=== PATIENT | male | born 1980 | race African-American/Black ===

== ENCOUNTER 2016-07-19 11:44 | Emergency (ER) | payer MEDICAID ==
[~2016-07-19] VITALS: Ht 182.9 cm; Wt 115.7 kg
[~2016-07-19 11:44] MED LIST: GABA300C; HYDR-429
[2016-07-19 12:23] VITALS: BP 171/103
== END 2016-07-19 13:02 | disposition home or self-care (01) ==
LOC: ER 11:45
DX: S43.401A Unspecified sprain of right shoulder joint, initial encounter (principal); J06.9 Acute upper respiratory infection, unspecified; I10 Essential (primary) hypertension; F41.9 Anxiety disorder, unspecified; W01.0XXA Fall on same level from slipping, tripping and stumbling without subsequent striking against object, initial encounter; Y93.89 Activity, other specified; Y92.89 Other specified places as the place of occurrence of the external cause; Y99.8 Other external cause status
CPT/HCPCS: 99283; A4606; Z7610

== ENCOUNTER 2016-12-28 06:56 | Emergency (ER) | payer MEDICAID ==
[~2016-12-28] VITALS: Ht 182.9 cm; Wt 113.4 kg
[~2016-12-28 06:56] MED LIST changes: -HYDR-429; +HYDR-548
--- NOTE | 2016-12-28 07:00 | NUR ---
PT PRESENTED TO THE ER WITH A C/O LT TESTICULAR PAIN X 3 DAYS THAT RADIATES TO THE BACK. PT AMBULATED TO THE BATHROOM. URINE SAMPLE OBTAINED. PT AMBULATED TO BED #[address]Y GAIT. DR. WHITFIELD IS AT THE BEDSIDE.
--- NOTE | 2016-12-28 07:15 | NUR ---
LAB CALLED FOR DRAW.
--- NOTE | 2016-12-28 07:21 | NUR ---
REPORT GIVEN TO ESAU NOLAND FOR ESTER.
[2016-12-28 07:38] LABS: BASOPHILS % (AUTO) 0.7 % (0.0-2.0); EOSINOPHILS # (AUTO) 0.2 /CMM (0.0-0.7); EOSINOPHILS % (AUTO) 4.3 % (0.0-6.0); HEMATOCRIT 39 % (39-51); HEMOGLOBIN 13.4 g/dL (13.5-17.5); LYMPHOCYTES # (AUTO) 1.8 /CMM (0.8-4.8); MEAN CORPUSCULAR HEMOGLOBIN 29 PG (26.0-33.0); MEAN CORPUSCULAR HGB CONC 34 g/dl (31.0-36.0); MEAN CORPUSCULAR VOLUME 86 fL (80-96); MONOCYTES # (AUTO) 0.5 /CMM (0.1-1.30); MONOCYTES % (AUTO) 10.4 % (2.0-12.0); NEUTROPHILS # (AUTO) 2.2 /CMM (1.8-8.9); NEUTROPHILS % (AUTO) 45.6 % (43.0-81.0); PLATELET COUNT (AUTO) 240 /CMM (150-450); RDW COEFFICIENT OF VARIATION 14.1 (11.5-15.0); RED BLOOD CELL COUNT(AUTO) 4.61 MIL/uL (4.5-6.0); WHITE BLOOD COUNT (AUTO) 4.7 K/uL (4.3-11.0)
[2016-12-28 07:38] LABS: BILIRUBIN,URINE NEGATIVE (NEGATIVE); BLOOD, URINE NEGATIVE Ery/uL (NEGATIVE); COLOR,URINE YELLOW (YELLOW); KETONES,URINE NEGATIVE (NEGATIVE); LEUKOCYTE ESTERASE ,URINE NEGATIVE (NEGATIVE); NITRITE, URINE NEGATIVE (NEGATIVE); PH,URINE 5.5 (5.0-8.0); PROTEIN,URINE NEGATIVE (NEGATIVE); UGLUCOSE NEGATIVE (NEGATIVE); UROBILINOGEN,URINE 0.2 EU/dL (0.2)
[2016-12-28 07:40] LABS: APPEARANCE,URINE CLEAR (CLEAR)
[2016-12-28 07:52] LABS: CALCIUM, SERUM 8.7 mg/dL (8.5-10.1); CREATININE 1.1 mg/dL (0.6-1.3); POTASSIUM 3.8 mmol/L (3.5-5.1)
--- NOTE | 2016-12-28 08:50 | NUR ---
GINNA AT BS.
[2016-12-28] MEDS ORDERED: IBUPROFEN 600 MG TABLET PO ONE ×2 (10:00→10:04)
--- NOTE | 2016-12-28 10:23 | NUR ---
Patient discharged to home in stable condition. Written and verbal after care instructions given. Patient verbalizes understanding of instruction.
[2016-12-28 10:24] VITALS: BP 155/85
== END 2016-12-28 10:25 | disposition home or self-care (01) ==
LOC: ER 06:56
DX: N50.82 Scrotal pain (principal); I10 Essential (primary) hypertension; F41.9 Anxiety disorder, unspecified
CPT/HCPCS: 36415; 76870-TC; 80048-TC; 81000-TC; 85025-TC; A4606; Z7610

== ENCOUNTER 2017-03-12 07:55 | Emergency (ER) | payer MEDICAID ==
[~2017-03-12] VITALS: Ht 182.9 cm; Wt 115.7 kg
[2017-03-12 07:55] VITALS: BP 147/101
== END 2017-03-12 08:47 | disposition home or self-care (01) ==
LOC: ER 07:57
DX: S60.012A Contusion of left thumb without damage to nail, initial encounter (principal); F17.200 Nicotine dependence, unspecified, uncomplicated; I10 Essential (primary) hypertension; F41.9 Anxiety disorder, unspecified; W22.8XXA Striking against or struck by other objects, initial encounter; Y92.89 Other specified places as the place of occurrence of the external cause; Y93.89 Activity, other specified; Y99.8 Other external cause status
CPT/HCPCS: 29125; 73140; 99284; 99406; A4606; Z7610

== ENCOUNTER 2017-05-13 14:37 | Emergency (ER) | payer MEDICAID ==
[~2017-05-13] VITALS: Ht 182.9 cm; Wt 117.9 kg
--- NOTE | 2017-05-13 15:00 | NUR ---
PT CAME IN WITH C/O NAUSEA, VOMITING, DYSURIA, SCROTAL PAIN x 2 DAYS. NAD NOTED. SEEN BY MD FOR EVAL. SAFETY AND COMFORT MEASURES PROVIDED. WILL MONITOR.
[2017-05-13 15:40] LABS: APPEARANCE,URINE Clear (CLEAR); BILIRUBIN,URINE Negative (NEGATIVE); BLOOD, URINE Negative Ery/uL (NEGATIVE); KETONES,URINE 15 (NEGATIVE); LEUKOCYTE ESTERASE ,URINE Negative (NEGATIVE); NITRITE, URINE Negative (NEGATIVE); PH,URINE 5.5 (5.0-8.0); PROTEIN,URINE Trace mg/dl (NEGATIVE); UGLUCOSE Negative (NEGATIVE); UROBILINOGEN,URINE 0.2 EU/dL (0.2)
[2017-05-13 15:41] LABS: COLOR,URINE Dark Yellow (YELLOW)
[2017-05-13 15:48] LABS: BACTERIA,URINE None seen /HPF (None Seen); MUCUS,URINE Few /LPF (None Seen); RBC,URINE 0-3 /HPF (0-2); SQUAMOUS EPITHELIAL CELL,UR Few /HPF (None Seen); WBC,URINE 0-3 /HPF (0-3)
[2017-05-13] MEDS ORDERED: ONDANSETRON 4 MG TAB.RAPDIS ONE (16:24)
[2017-05-13] MEDS ORDERED: IBUPROFEN 600 MG TABLET PO ONE ×2 (16:24→16:30)
[2017-05-13] MEDS ORDERED: ONDANSETRON 4 MG TAB.RAPDIS SL ONE (16:30)
--- NOTE | 2017-05-13 16:35 | NUR ---
PT MEDICATED ORDERED.
--- NOTE | 2017-05-13 19:24 | NUR ---
Patient discharged to home in stable condition. Written and verbal after care instructions given. Patient verbalizes understanding of instruction. ambulatory with a steady gait
[2017-05-13 19:25] VITALS: BP 137/64
== END 2017-05-13 19:25 | disposition home or self-care (01) ==
LOC: ER 14:44
DX: N45.1 Epididymitis (principal); I10 Essential (primary) hypertension; F41.9 Anxiety disorder, unspecified; F17.200 Nicotine dependence, unspecified, uncomplicated; Z88.0 Allergy status to penicillin
CPT/HCPCS: 76870; 81001; 87086; 87491; 87591; 99285; 99406; A4606; Q0162; Z7610; 81000-TC

== ENCOUNTER 2017-08-30 10:33 | Emergency (ER) | payer MEDICAID ==
[~2017-08-30] VITALS: Ht 182.9 cm; Wt 118.8 kg
--- NOTE | 2017-08-30 10:50 | NUR ---
PT AMBULATORY TO ER BED 10 WITH COMPLAINTS OF R FLANK PAIN, RADIATING TO THE R LOWER ABDOMEN AND PERSISTENT PENILE PAIN. PT DENIES ANY FEVERS, NAUSEA, OR VOMITING. PT DENIES ANY HEMATURIA, DYSURIA, OR DISCHARGE. PT REPORTS THAT HE WAS RECENTLY SEEN AT [facility] OFFICE TO ADJUST BP MEDICATION AND HAD UNREMARKABLE LABRATORY RESULTS ABDOMEN IS SOFT, NON, TENDER, AND AND NONDISTENDED.
[2017-08-30 11:45] LABS: APPEARANCE,URINE Clear (CLEAR); BILIRUBIN,URINE SMALL (NEGATIVE); BLOOD, URINE Negative Ery/uL (NEGATIVE); COLOR,URINE Yellow (YELLOW); KETONES,URINE Negative (NEGATIVE); LEUKOCYTE ESTERASE ,URINE Negative (NEGATIVE); NITRITE, URINE Negative (NEGATIVE); PH,URINE 5.5 (5.0-8.0); PROTEIN,URINE 30 mg/dl (NEGATIVE); UGLUCOSE Negative (NEGATIVE); UROBILINOGEN,URINE 0.2 EU/dL (0.2)
[2017-08-30 11:51] LABS: BACTERIA,URINE Rare /HPF (None Seen); MUCUS,URINE Moderate /LPF (None Seen); RBC,URINE 0-2 /HPF (0-2); SQUAMOUS EPITHELIAL CELL,UR Few /HPF (None Seen); WBC,URINE 0-2 /HPF (0-3)
[2017-08-30] MEDS ORDERED: AZITHROMYCIN 250 MG TABLET ONE (11:57)
[2017-08-30] MEDS ORDERED: ACETAMINOPHEN ES 500 MG TABLET ONE (11:57)
[2017-08-30] MEDS ORDERED: ASPIRIN 81 MG TAB.CHEW ONE (11:58)
[2017-08-30] MEDS ORDERED: ACETAMINOPHEN 325 MG TABLET PO ONE (12:00)
[2017-08-30] MEDS ORDERED: AZITHROMYCIN 250 MG TABLET PO ONE (12:00)
[2017-08-30] MEDS ORDERED: ASPIRIN 81 MG TAB.CHEW PO ONE (12:00)
[2017-08-30] MEDS ORDERED: CEFTRIAXONE 0.25 G in IV D5W 50 ML IV ONE (12:00)
[2017-08-30 12:07] LABS: BASOPHILS % (AUTO) 0.5 % (0.0-2.0); EOSINOPHILS # (AUTO) 0.3 /CMM (0.0-0.7); EOSINOPHILS % (AUTO) 5.9 % (0.0-6.0); HEMATOCRIT 39 % (39-51); HEMOGLOBIN 13.4 g/dL (13.5-17.5); LYMPHOCYTES % (AUTO) 40.4 % (20.0-44.0); MEAN CORPUSCULAR HEMOGLOBIN 30 PG (26.0-33.0); MEAN CORPUSCULAR HGB CONC 34 g/dl (31.0-36.0); MEAN CORPUSCULAR VOLUME 86 fL (80-96); MONOCYTES # (AUTO) 0.5 /CMM (0.1-1.30); MONOCYTES % (AUTO) 10.9 % (2.0-12.0); NEUTROPHILS # (AUTO) 2.1 /CMM (1.8-8.9); NEUTROPHILS % (AUTO) 42.3 % (43.0-81.0); PLATELET COUNT (AUTO) 272 /CMM (150-450); RDW COEFFICIENT OF VARIATION 12.9 (11.5-15.0); RED BLOOD CELL COUNT(AUTO) 4.54 MIL/uL (4.5-6.0); WHITE BLOOD COUNT (AUTO) 4.9 K/uL (4.3-11.0)
--- NOTE | 2017-08-30 12:15 | NUR ---
LINE STARTED ON L AC G 20, BLOOD DRAWN FROM LINE AND SENT TO LAB
[2017-08-30 12:18] LABS: CALCIUM, SERUM 9.3 mg/dL (8.5-10.1); CARBON DIOXIDE 28 mmol/L (21-32); CHLORIDE 105 mmol/L (98-107); GLUCOSE 94 mg/dL (74-106); POTASSIUM 4.3 mmol/L (3.5-5.1); SODIUM SERUM 140 mmol/L (136-145); UREA NITROGEN, BLOOD 10 mg/dL (7-18)
[2017-08-30 12:21] LABS: INR 0.95 (0.85-1.15)
[2017-08-30 12:24] LABS: TROPONIN I < 0.017 ng/mL (0.00-0.056)
[2017-08-30 12:29] LABS: ALANINE AMINOTRANSFERASE 47 U/L (12-78); ALBUMIN 3.9 g/dL (3.4-5.0); ALKALINE PHOSPHATASE 105 U/L (46-116); ASPARTATE AMINOTRANSFERASE 31 U/L (15-37); BILIRUBIN,DIRECT 0.1 mg/dL (0.0-0.2); BILIRUBIN,TOTAL 0.4 mg/dL (0.2-1.0)
[2017-08-30 12:30] LABS: B-TYPE NATRIURETIC PEPTIDE 9 PG/ML (0-125)
--- NOTE | 2017-08-30 13:54 | NUR ---
PT. VERBALIZED UNDERSTANDING OF AFTERCARE INSTRUCTIONS.Patient discharged to home in stable condition. Written and verbal after care instructions given. Patient verbalizes understanding of instruction.
--- NOTE | 2017-08-30 13:54 | NUR ---
IV removed. Catheter intact and site benign. Pressure and 4x4 applied to site. No bleeding noted.
[2017-08-30 13:55] VITALS: BP 155/104
== END 2017-08-30 13:55 | disposition home or self-care (01) ==
LOC: ER 10:34
DX: R07.89 Other chest pain (principal); N34.2 Other urethritis; I10 Essential (primary) hypertension; I51.7 Cardiomegaly; F41.9 Anxiety disorder, unspecified; Z88.0 Allergy status to penicillin; Z88.1 Allergy status to other antibiotic agents; F17.200 Nicotine dependence, unspecified, uncomplicated; Z79.82 Long term (current) use of aspirin
CPT/HCPCS: 36415; 71045-TC; 80048-TC; 80076-TC; 81000-TC; 83880; 84484-TC; 85025-TC; 85730-TC; 87491; 87591; A4606; J0696; J7060; Z7610